=== PATIENT | female | born 1950 | race Caucasian/White ===

== ENCOUNTER → 2016-04-18 | Outpatient (CLI) | payer MEDICARE, BC ==
--- NOTE | 2016-04-18 15:33 | REP ---
Chest x-ray: Two views. History: Cough. Findings: There is a moderate levoconvex upper thoracic rotoscoliotic curve. No other bony abnormality is seen. There are clips in right upper quadrant of the abdomen consistent with a previous cholecystectomy. The heart is not enlarged. Pulmonary vasculature is not increased. The lungs are symmetrically aerated. Pleural angles are sharp. There is some linear fibrosis in the right lateral pleural angle. No other abnormality. 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 Upper thoracic scoliotic curve. Otherwise no acute disease. Signed by Robbie Tse MD 04/18/2016 04:23 P
== END ==
LOC: M SMT 13:17
PROVIDERS: ATTEND Internal Medicine Pulmonary Disease
DX: J84.10 Pulmonary fibrosis, unspecified (principal)

== ENCOUNTER → 2017-01-19 | Outpatient (REF) | payer MEDICARE, BC ==
[2017-01-19 21:35] LABS: IMMUNOGLOBULIN G 962 MG/DL (681-1648); IMMUNOGLOBULIN M 356 MG/DL (40-230); TOTAL PROTEIN 6.5 GM/DL (6.4-8.2)
[2017-01-20 11:05] LABS: ALBUMIN 3.67 GM/DL (3.29-5.55); ALBUMIN % 56.4 % (55.8-66.1); GAMMA GLOBULIN % 19.2 % (11.1-18.8)
[2017-01-22 00:07] LABS: BETA 2 MICROGLOBULIN 1.5 mg/L (0.6-2.4); FREE KAPPA LIGHT CHAINS SERUM 24.4 mg/L (3.3-19.4); FREE LAMBDA LIGHT CHAINS SERUM 31.7 mg/L (5.7-26.3); KAPPA/LAMBDA RATIO SERUM 0.77 (0.26-1.65)
== END ==
LOC: M LAB REF 16:23
PROVIDERS: ATTEND Internal Medicine Medical Oncology
DX: R76.8 Other specified abnormal immunological findings in serum (principal)

== ENCOUNTER → 2017-08-20 | Outpatient (CLI) | payer MEDICARE, BC ==
[~2017-08-20] MED LIST: ISOVUE-300 61% 50ML VIAL (Q9967) As Ordered
== END ==
LOC: M RAD 08:39
DX: N30.90 Cystitis, unspecified without hematuria (principal)
CPT/HCPCS: Q9967

== ENCOUNTER → 2017-11-25 | Outpatient (REF) | payer MEDICARE, BC | LOC: M LAB REF 17:11 | DX: M67.479 Ganglion, unspecified ankle and foot (principal) | CPT/HCPCS: 88313 ==

== ENCOUNTER → 2019-05-19 | Outpatient (REF) | payer MEDICARE, BC ==
[~2019-05-19] MED LIST changes: -ISOVUE-300 61% 50ML VIAL (Q9967) As Ordered; +LASI20TA3 PO; +LEVO50TA5 PO; +LYSI1000 PO; +SAM-400T3 PO; +SPIR50TA4 PO; +VITA10006 PO; +VITA100T56 PO; +VITA1CAP25 PO; +VITMTA PO; +[UNRECOGNIZED DRUG - CODE] XX
[2019-05-19 14:51] LABS: WBC, URINE AUTO 0 /HPF (0-3)
[2019-05-19 14:52] LABS: BACTERIA, URINE AUTO NEGATIVE (NEGATIVE); RBC, URINE AUTO 0 /HPF (0-3); SQUAMOUS EPITHELIAL CELL UR AU 0 /HPF (0-6)
== END ==
LOC: M SMT 13:23
PROVIDERS: ATTEND Specialist
DX: N39.0 Urinary tract infection, site not specified (principal)
CPT/HCPCS: 51798; 81015; 87086; G0463

== ENCOUNTER → 2020-07-23 | Outpatient (REF) | payer MEDICARE, BC | LOC: M LAB REF 16:07 | PROVIDERS: ATTEND Physician Assistant | DX: L57.0 Actinic keratosis (principal); L57.8 Other skin changes due to chronic exposure to nonionizing radiation ==

== ENCOUNTER → 2020-10-10 | Outpatient (REF) | payer MEDICARE, BC | LOC: M LAB REF 12:36 | PROVIDERS: ATTEND Ophthalmology | DX: H02.834 Dermatochalasis of left upper eyelid (principal); H02.831 Dermatochalasis of right upper eyelid ==